=== PATIENT | male | born 1980 | race Caucasian/White ===

== ENCOUNTER 2018-01-06 05:16 | Observation (INO) | payer MEDICAID, OTHER ==
[~2018-01-06] VITALS: Ht 175.3 cm; Wt 97.7 kg
[2018-01-06 06:20] LABS: BASOPHILS # (AUTO) 0.04 x10^3/uL (0-0.1); BASOPHILS % (AUTO) 1 % (0-1); EOSINOPHILS # (AUTO) 0.09 x10^3/uL (0-0.4); EOSINOPHILS % (AUTO) 1 % (1-7); LYMPHOCYTES # (AUTO) 1.41 x10^3/uL (1-3.4); LYMPHOCYTES % (AUTO) 17 % (22-44); MD NO; MEAN CORPUSCULAR HEMOGLOBIN 30.2 pg (27.5-34.5); MEAN CORPUSCULAR HGB CONC 34.7 g/dL (33.2-36.2); MEAN PLATELET VOLUME 8.8 fL (7.4-10.4); MONOCYTES # (AUTO) 0.52 x10^3/uL (0.2-0.8); MONOCYTES % (AUTO) 6 % (2-9); NEUTROPHILS # (AUTO) 6.52 x10^3/uL (1.8-6.8); NEUTROPHILS % (AUTO) 76 % (42-75); PLATELET COUNT 228 x10^3/uL (130-400); RED BLOOD COUNT 5.58 x10^6/uL (4.38-5.82)
[2018-01-06 06:30] LABS: ALBUMIN 4.6 g/dL (3.4-5.0); ANION GAP 7 mmol/L (5-15); CALCIUM 10.6 mg/dL (8.5-10.1); CHLORIDE 109 mmol/L (98-107); SALICYLATE LEVEL 4.7 mg/dL (2.8-20.0)
[2018-01-06 06:31] LABS: CREATININE 0.99 mg/dL (0.7-1.3)
[2018-01-06 06:32] LABS: ACETAMINOPHEN < 2 mcg/mL (10-30)
[2018-01-06 06:35] LABS: AMPHETAMINE SCREEN, URINE Negative (Negative); BARBITURATE SCREEN, URINE Negative (Negative); BENZODIAZEPINE SCREEN, URINE Negative (Negative); CANNABINOID SCREEN, URINE Positive (Negative); COCAINE SCREEN, URINE Negative (Negative); METHADONE SCREEN, URINE Negative (Negative); OPIATE SCREEN, URINE Positive (Negative)
[2018-01-06] MEDS ORDERED: OLANZAPINE 5 MG TABLET PO PRN (12:30)
[2018-01-06] MEDS ORDERED: ONDANSETRON ODT 4 MG PO PRN (12:30)
[2018-01-06] MEDS ORDERED: POLYETHYLENE GLYCOL 17 GM PACKET PO PRN (12:30)
[2018-01-06 12:35] LABS: FREE T4 (FREE THYROXINE) 1.16 ng/dL (0.76-1.46); THYROID STIMULATING HORMONE 0.783 mIU/L (0.358-3.740)
[2018-01-06 13:56] VITALS: BP 149/93
[2018-01-06] MEDS: LORazepam 1MG TABLET PO PRN (16:54)
[2018-01-06 19:29] VITALS: BP 132/86
[2018-01-07 05:49] LABS: BASOPHILS # (AUTO) 0.04 x10^3/uL (0-0.1); BASOPHILS % (AUTO) 1 % (0-1); EOSINOPHILS # (AUTO) 0.27 x10^3/uL (0-0.4); EOSINOPHILS % (AUTO) 3 % (1-7); LYMPHOCYTES # (AUTO) 2.41 x10^3/uL (1-3.4); LYMPHOCYTES % (AUTO) 29 % (22-44); MD NO; MEAN CORPUSCULAR HGB CONC 34.1 g/dL (33.2-36.2); MEAN CORPUSCULAR VOLUME 87.8 fL (81-97); MEAN PLATELET VOLUME 8.6 fL (7.4-10.4); MONOCYTES % (AUTO) 10 % (2-9); NEUTROPHILS # (AUTO) 4.74 x10^3/uL (1.8-6.8); NEUTROPHILS % (AUTO) 57 % (42-75); PLATELET COUNT 236 x10^3/uL (130-400); RED BLOOD COUNT 5.63 x10^6/uL (4.38-5.82); RED CELL DISTRIBUTION WIDTH 13.7 % (9.4-14.8)
[2018-01-07 06:00] LABS: ALANINE AMINOTRANSFERASE 73 U/L (12-78); ALBUMIN 4.6 g/dL (3.4-5.0); ANION GAP 9 mmol/L (5-15); CALCIUM 9.6 mg/dL (8.5-10.1); CHLORIDE 111 mmol/L (98-107); CREATININE 1.11 mg/dL (0.7-1.3)
[2018-01-07 06:02] LABS: ALKALINE PHOSPHATASE 63 U/L (45-117); TOTAL PROTEIN 8.1 g/dL (6.4-8.2)
[2018-01-07 08:13] VITALS: BP 136/93
[2018-01-07] MEDS: SENNA/DOCUSATE TABLET PO SCH ×2 (08:49→09:01)
[2018-01-07] MEDS: LORazepam 1MG TABLET PO PRN ×2 (09:42→21:09)
[2018-01-07 19:48] VITALS: BP 133/89
[2018-01-08 07:50] VITALS: BP 141/90
[2018-01-08] MEDS: SENNA/DOCUSATE TABLET PO SCH (09:28)
[2018-01-08] MEDS: LORazepam 1MG TABLET PO PRN ×2 (10:01→13:12)
[2018-01-08 13:05] VITALS: BP 146/93
[2018-01-08] MEDS ORDERED: METOPROLOL TARTRATE 50 MG TABLET PO ONE (13:30)
[2018-01-08 14:02] VITALS: BP 142/89
== END 2018-01-08 15:14 ==
LOC: ED 07:39 → INTOOBSV 09:44 → EDIP 09:44 → 2N 13:48 → UNDODISOB 01-08 14:07
PROVIDERS: ADMIT Hospitalist; ATTEND Hospitalist
DX: F23 Brief psychotic disorder (principal); R45.851 Suicidal ideations; F32.9 Major depressive disorder, single episode, unspecified; F41.9 Anxiety disorder, unspecified; Z91.83 Wandering in diseases classified elsewhere
CPT/HCPCS: 36415; 80048; 80053; 80307; 80329; 82040; 84439; 84443; 85025; 99285; G0378; G0480